=== PATIENT | male | born 1985 | race Native Hawaiian/Other Pacific Islander ===

== ENCOUNTER 2020-02-18 17:12 | Emergency (ER) | payer OTHER ==
[~2020-02-18] VITALS: Ht 182.9 cm; Wt 117.9 kg
[2020-02-18 17:19] VITALS: TEMP 98.2
[2020-02-18 18:30] VITALS: BP 148/79
== END 2020-02-18 18:48 | disposition home or self-care (01) ==
LOC: ED 17:12
DX: M51.26 Other intervertebral disc displacement, lumbar region (principal); M62.830 Muscle spasm of back; X50.1XXA Overexertion from prolonged static or awkward postures, initial encounter; Y92.89 Other specified places as the place of occurrence of the external cause
CPT/HCPCS: 96372; 99283; J1885